=== PATIENT | male | born 1995 | race Caucasian/White ===

== ENCOUNTER 2019-03-28 13:23 | Emergency (ER) | payer OTHER ==
[~2019-03-28] VITALS: Ht 190.5 cm; Wt 63.6 kg
[2019-03-28] MEDS ORDERED: ALLEGRA 180MG180 MG PO (13:31)
[2019-03-28] MEDS ORDERED: ADVIL200 MG PO (13:32)
[2019-03-28] MEDS ORDERED: GOOD NEIGHBOR P10 M5 PO (13:32)
[2019-03-28 13:33] VITALS: TEMP 97.3
[2019-03-28] MEDS ORDERED: CLEOCIN HCL300 MG PO (14:39)
[2019-03-28 14:55] VITALS: BP 122/83; PULSE 64
== END 2019-03-28 14:55 | disposition home or self-care (01) ==
LOC: COL.ER 13:23
DX: J36 Peritonsillar abscess (principal); Z96.22 Myringotomy tube(s) status